=== PATIENT | male | born 1990 | race Caucasian/White ===

== ENCOUNTER 2016-09-29 14:41 | Emergency (ER) | payer MEDICAID, OTHER, SELFPAY ==
[~2016-09-29] VITALS: Ht 172.7 cm; Wt 95.0 kg
[2016-09-29] MEDS ORDERED: SODIUM CHLORIDE 0.9% 1,000ML IVBOLUS ONE ×2 (15:00→16:30)
[2016-09-29] MEDS ORDERED: MIDAZOLAM 1 MG/ML, 2ML IVPush ONE (15:00)
[2016-09-29] MEDS ORDERED: MIDAZOLAM 1 MG/ML, 5ML ONE (15:13)
[2016-09-29 15:28] LABS: ASPARTATE AMINO TRANSFERASE 39 U/L (15-37); BLOOD UREA NITROGEN 14 mg/dL (7-18)
[2016-09-29 16:19] VITALS: BP 150/82
== END 2016-09-29 19:25 | disposition home or self-care (01) ==
LOC: ED 19:00
DX: F29 Unspecified psychosis not due to a substance or known physiological condition (principal); F12.10 Cannabis abuse, uncomplicated; F15.10 Other stimulant abuse, uncomplicated; R44.3 Hallucinations, unspecified; N39.0 Urinary tract infection, site not specified
CPT/HCPCS: 36415; 51702; 80053; 80307; 85025; 93005; 96361; 96374; 99285; J2250; J7030

== ENCOUNTER 2018-08-27 15:01 | Emergency (ER) | payer BC, OTHER ==
[~2018-08-27] VITALS: Ht 172.7 cm; Wt 106.7 kg
[2018-08-27 15:12] VITALS: BP 147/96
[2018-08-27] MEDS ORDERED: LIDOCAINE-MPF 1%, 5ML ONE (15:20)
[2018-08-27] MEDS ORDERED: LIDOCAINE-MPF 1%, 5ML INFIL ONE (16:00)
== END 2018-08-27 16:43 | disposition home or self-care (01) ==
LOC: ED 16:37
DX: S01.81XA Laceration without foreign body of other part of head, initial encounter (principal); S01.511A Laceration without foreign body of lip, initial encounter; F29 Unspecified psychosis not due to a substance or known physiological condition; Z88.0 Allergy status to penicillin; W22.8XXA Striking against or struck by other objects, initial encounter; Y93.89 Activity, other specified; Y92.89 Other specified places as the place of occurrence of the external cause; Y99.8 Other external cause status
CPT/HCPCS: 12051; 99284

== ENCOUNTER 2020-03-17 15:40 | Emergency (ER) | payer SELFPAY ==
[~2020-03-17] VITALS: Ht 175.3 cm; Wt 76.9 kg
--- NOTE | 2020-03-17 16:17 | NUR ---
SYSTEMS SUPPORT OFFICER: PT TO ROOM
[2020-03-17] MEDS ORDERED: ASPIRIN 81 MG TABLET CHEW ONE (16:19)
[2020-03-17] MEDS ORDERED: SODIUM CHLORIDE FLUSH 10ML SYR IVF ONE (16:30)
[2020-03-17] MEDS ORDERED: ASPIRIN 81 MG TABLET CHEW PO ONE (16:30)
--- NOTE | 2020-03-17 16:44 | NUR ---
BLOOD SENT TO LAB, IV STARTED. XRAY IN ROOM. PT PULLED OFF ALL MONITORS YELLING "FUCK". PT REPORTS DOING METH TWO DAYS AGO. PT WORRIED ABOUT HIS KIDS. PT TOLD HE COULD CALL HIS FAMILY. PT THINKS THAT HIS BLOOD WAS "MESSED WITH, YOU GUYS ARE ARE NOT HERE TO HELP ME".EXTREME PARANOIA NOTED, PT UP AND DOWN OFF HIS BED. PT IS NOW DRESSED. REPORTS THAT HE WILL NOT LEAVE WITH HIS IV, THAT HE WOULD TALK TO STAFF IF HE WANT TO GO.
[2020-03-17 17:02] LABS: ALANINE AMINOTRANSFERASE 27 U/L (12-78); ALBUMIN 4.1 g/dL (3.4-5.0); ANION GAP 6 mmol/L (5-15); CALCIUM 8.6 mg/dL (8.5-10.1); CHLORIDE 109 mmol/L (98-107); CREATININE 0.96 mg/dL (0.7-1.3)
[2020-03-17 17:06] LABS: ALKALINE PHOSPHATASE 92 U/L (45-117); BILIRUBIN,TOTAL 0.7 mg/dL (0.2-1.0); TOTAL PROTEIN 7.8 g/dL (6.4-8.2); TROPONIN I < 0.015 ng/mL (0.000-0.045)
[2020-03-17 17:09] LABS: BASOPHILS % (AUTO) 1 % (0-1); EOSINOPHILS % (AUTO) 2 % (1-7); LYMPHOCYTES % (AUTO) 27 % (22-44); MEAN CORPUSCULAR HEMOGLOBIN 31.6 pg (27.5-34.5); MEAN CORPUSCULAR HGB CONC 34.4 g/dL (33.2-36.2); MEAN PLATELET VOLUME 8.9 fL (7.4-10.4); MONOCYTES % (AUTO) 12 % (2-9); NEUTROPHILS % (AUTO) 59 % (42-75); PLATELET COUNT 260 x10^3/uL (130-400); RED BLOOD COUNT 4.71 x10^6/uL (4.38-5.82); RED CELL DISTRIBUTION WIDTH 13.1 % (9.4-14.8)
[2020-03-17 17:11] LABS: MD NO
[2020-03-17 18:05] LABS: MICROSCOPIC INDICATED
[2020-03-17 18:58] VITALS: BP 128/67
== END 2020-03-17 19:11 | disposition home or self-care (01) ==
LOC: ED 16:52
DX: R07.89 Other chest pain (principal); F15.10 Other stimulant abuse, uncomplicated; E87.6 Hypokalemia; R42 Dizziness and giddiness; R00.0 Tachycardia, unspecified; R30.0 Dysuria
CPT/HCPCS: 36415; 71045; 80053; 81001; 82962; 84484; 85025; 93005; 99285

== ENCOUNTER 2020-03-17 20:43 | Emergency (ER) | payer SELFPAY ==
[~2020-03-17] VITALS: Ht 172.7 cm; Wt 76.0 kg
[2020-03-17 20:47] VITALS: BP 151/73
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
[2020-03-17 21:36] LABS: BASOPHILS % (AUTO) 0 % (0-1); EOSINOPHILS % (AUTO) 2 % (1-7); LYMPHOCYTES % (AUTO) 35 % (22-44); MEAN CORPUSCULAR HEMOGLOBIN 31.4 pg (27.5-34.5); MEAN CORPUSCULAR HGB CONC 34.2 g/dL (33.2-36.2); MEAN PLATELET VOLUME 8.5 fL (7.4-10.4); MONOCYTES % (AUTO) 13 % (2-9); NEUTROPHILS % (AUTO) 49 % (42-75); PLATELET COUNT 250 x10^3/uL (130-400); RED BLOOD COUNT 4.49 x10^6/uL (4.38-5.82); RED CELL DISTRIBUTION WIDTH 13.2 % (9.4-14.8)
[2020-03-17 21:40] LABS: ALANINE AMINOTRANSFERASE 26 U/L (12-78); ALBUMIN 3.8 g/dL (3.4-5.0); ANION GAP 7 mmol/L (5-15); CALCIUM 8.3 mg/dL (8.5-10.1); CHLORIDE 110 mmol/L (98-107); CREATININE 0.77 mg/dL (0.7-1.3)
[2020-03-17 21:42] LABS: MD NO
[2020-03-17 21:43] LABS: ALKALINE PHOSPHATASE 87 U/L (45-117); BILIRUBIN,TOTAL 0.6 mg/dL (0.2-1.0); TOTAL PROTEIN 7.2 g/dL (6.4-8.2)
[2020-03-17] MEDS ORDERED: OLANZAPINE 10 MG TABLET ONE ×2 (21:58→22:39)
--- NOTE | 2020-03-17 22:32 | NUR ---
PT ABLE TO VOID, TOX SCREEN WALKED TO LAB. SITTER AT DOORWAY
--- NOTE | 2020-03-17 22:44 | NUR ---
PER XIOMARA GIVE ZYPREXA NOW AND NOT TOMORROW AT 0900. ORDERS REPEATED FOR VERIFICATION
[2020-03-17 22:50] LABS: AMPHETAMINE SCREEN, URINE Positive (Negative); BARBITURATE SCREEN, URINE Negative (Negative); BENZODIAZEPINE SCREEN, URINE Negative (Negative); CANNABINOID SCREEN, URINE Negative (Negative); COCAINE SCREEN, URINE Negative (Negative); METHADONE SCREEN, URINE Negative (Negative); OPIATE SCREEN, URINE Negative (Negative)
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
[2020-03-18] MEDS ORDERED: OLANZAPINE 10 MG TABLET PO SCH (09:00)
== END 2020-03-18 00:21 | disposition home or self-care (01) ==
LOC: ED 21:05
DX: F15.151 Other stimulant abuse with stimulant-induced psychotic disorder with hallucinations (principal); F10.10 Alcohol abuse, uncomplicated; F17.210 Nicotine dependence, cigarettes, uncomplicated; R44.0 Auditory hallucinations; Z72.9 Problem related to lifestyle, unspecified; Y90.0 Blood alcohol level of less than 20 mg/100 ml
CPT/HCPCS: 36415; 80053; 80299; 80307; 80320; 80329; 85025; 99283; 99406; G0480